=== PATIENT | male | born 1990 | race Caucasian/White ===

== ENCOUNTER 2017-09-17 02:25 | Emergency (ER) | payer SELFPAY ==
[~2017-09-17 02:25] MED LIST: PERC10TA27 PO; PROM25SU8 PO; TAMS0.4C67 PO
[2017-09-17 03:03] VITALS: BP 176/118; PULSE 76; RESP 18; TEMP 98.9; O2SAT 98
== END 2017-09-17 09:03 | disposition left against medical advice (07) ==
LOC: NED 02:25
DX: K08.89 Other specified disorders of teeth and supporting structures (principal)
CPT/HCPCS: 99281